=== PATIENT | female | born 1980 | race African-American/Black ===

== ENCOUNTER 2019-06-28 17:43 | Emergency (ER) | payer MEDICAID ==
[~2019-06-28] VITALS: Ht 157.5 cm; Wt 52.0 kg
[2019-06-28 18:40] VITALS: BP 145/98
[2019-06-28] MEDS ORDERED: KETOROLAC 60MG/2ML VIAL IM ONE (18:45)
== END 2019-06-28 19:12 | disposition left against medical advice (07) ==
LOC: ER 17:43
DX: M79.601 Pain in right arm (principal); M79.631 Pain in right forearm
CPT/HCPCS: 96372; 99283; J1885